=== PATIENT | female | born 1955 | race Caucasian/White ===

== ENCOUNTER 2022-12-30 04:05 | Emergency (ER) | payer MEDICARE ==
[~2022-12-30] VITALS: Ht 162.6 cm; Wt 78.0 kg
[2022-12-30] MEDS ORDERED: ONDANSETRON HCL 4MG/2ML INJ IM STA (05:46)
[2022-12-30] MEDS ORDERED: KETOROLAC 60MG/2ML VIAL IM STA (05:46)
[2022-12-30 06:08] LABS: CLARITY URINE CLEAR (CLEAR); COLOR URINE YELLOW (YELLOW); KETONES URINE NEGATIVE (NEGATIVE); LEUKOCYTE ESTERASE URINE NEGATIVE (NEGATIVE); NITRITE URINE NEGATIVE (NEGATIVE); OCCULT BLOOD URINE NEGATIVE (NEGATIVE); PH URINE 5.5 (4.5-8.0); PROTEIN URINE NEGATIVE (NEGATIVE); SPECIFIC GRAVITY URINE 1.012 (1.005-1.030); UROBILINOGEN URINE 0.2 E.U./dL (0.2-1.0)
[2022-12-30 06:20] LABS: BASOPHILS % 0.7 % (0.0-2.0); EOSINOPHILS % 2.9 % (0.0-5.0); HEMOGLOBIN. 14.6 g/dL (12.0-16.0); LYMPHOCYTES % 21.2 % (20.0-50.0); MEAN CORPUSCULAR HEMOGLOBIN 30.1 pg (28.0-32.0); MEAN CORPUSCULAR VOLUME 90.7 fL (81.0-99.0); MONOCYTES % 6.5 % (2.0-8.0); NEUTROPHILS % 68.7 % (40.0-76.0); PLATELET 362 x1000/uL (130-400); RED BLOOD CELL COUNT 4.85 mill/uL (4.2-5.4); RED CELL DISTRIBUTION WIDTH 12.8 % (11.6-14.6)
[2022-12-30 06:28] LABS: CHLORIDE 113 mEq/L (98-107)
[2022-12-30] MEDS ORDERED: ACETAMINOPHEN WITH CODEINE 300/30MG TABLET PO ONE (07:15)
[2022-12-30] MEDS ORDERED: T3 PO (09:16)
[2022-12-30] MEDS ORDERED: IBUP-2028 PO (09:16)
[2022-12-30 09:43] VITALS: BP 163/107
== END 2022-12-30 09:48 | disposition home or self-care (01) ==
LOC: ER 04:05
DX: M54.6 Pain in thoracic spine (principal)
CPT/HCPCS: 36415; 71101; 72100; 80053; 81003; 83690; 85025; 96372; 99284; J1885; J2405

== ENCOUNTER 2024-08-05 19:03 | Emergency (ER) | payer MEDICARE, MEDICAID ==
[~2024-08-05] VITALS: Ht 167.6 cm; Wt 82.0 kg
[~2024-08-05 19:03] MED LIST: IBUP-2028 PO; T3 PO
[2024-08-05 19:06] VITALS: O2SAT 100
[2024-08-05 19:08] VITALS: BP 143/89; PULSE 67; RESP 18; TEMP 97.5; O2SAT 96
[2024-08-05 20:07] LABS: HEMATOCRIT. 45.7 % (36.0-48.0); HEMOGLOBIN. 15.7 g/dL (12.0-16.0); MEAN CORPUSCULAR HEMOGLOBIN 31.3 pg (28.0-32.0); MEAN CORPUSCULAR HGB CONC 34.3 g/dL (31.0-37.0); MEAN CORPUSCULAR VOLUME 91.4 fL (81.0-99.0); MEAN PLATELET VOLUME 7.5 fl (7.4-10.4); PLATELET 319 x1000/uL (130-400); RED CELL DISTRIBUTION WIDTH 12.7 % (11.6-14.6); WHITE BLOOD COUNT 8.8 x1000/uL (4.5-11.0)
[2024-08-05 20:09] LABS: CHLORIDE 100 mEq/L (98-107); POTASSIUM 3.4 mEq/L (3.5-5.1); SODIUM 138 mEq/L (136-145)
[2024-08-05 20:10] LABS: CARBON DIOXIDE 27 mEq/L (21-32); DIFFERENTIAL COMMENT 1
[2024-08-05 20:15] LABS: CREATININE 1.1 mg/dL (0.6-1.0); GLUCOSE 148 mg/dL (70-105); UREA NITROGEN BLOOD 17 mg/dL (9-23)
[2024-08-05 20:27] LABS: TROPONIN I HIGH SENSITIVITY 204 ng/L (3.0-34)
[2024-08-05 20:33] LABS: PLATELET ESTIMATE NORMAL
[2024-08-05] MEDS ORDERED: ASPIRIN 325MG EC TABLET PO ONE (20:45)
[2024-08-05 21:34] LABS: CLARITY URINE CLOUDY (CLEAR); COLOR URINE DARK YELLOW (YELLOW); GLUCOSE URINE NEGATIVE (NEGATIVE); KETONES URINE TRACE (NEGATIVE); LEUKOCYTE ESTERASE URINE NEGATIVE (NEGATIVE); NITRITE URINE NEGATIVE (NEGATIVE); OCCULT BLOOD URINE NEGATIVE (NEGATIVE); PROTEIN URINE 1+ (NEGATIVE); SPECIFIC GRAVITY URINE 1.021 (1.005-1.030)
[2024-08-05 21:52] LABS: BACTERIA URINE TRACE; RBC URINE 0-2 /hpf (0-2); SQUAMOUS EPITHELIAL CELL URINE FEW /lpf (RARE/1+); WBC URINE NONE SEEN /hpf (0-2)
[2024-08-05] MEDS ORDERED: ENOXAPARIN 80MG/0.8ML SYR SUBCUT ONE (22:30)
[2024-08-05] MEDS ORDERED: MORPHINE SULFATE 4 MG/ML INJ (FOR IV/IM USE) IV ONE (22:30)
[2024-08-05] MEDS ORDERED: ONDANSETRON HCL 4MG/2ML INJ IV ONE (22:30)
== END 2024-08-05 22:55 | disposition left against medical advice (07) ==
LOC: ER 19:03 → EDBEDREQ 20:49 → ER 22:55
DX: I21.A1 Myocardial infarction type 2 (principal); A08.8 Other specified intestinal infections; I10 Essential (primary) hypertension; Z79.1 Long term (current) use of non-steroidal anti-inflammatories (NSAID); Z86.718 Personal history of other venous thrombosis and embolism
CPT/HCPCS: 36415; 71045; 80048; 81003; 84484; 85025; 93005; 99291